=== PATIENT | female | born 1930 | race Asian ===

== ENCOUNTER → 2017-02-26 | Outpatient (CLI) | payer MEDICARE, OTHER ==
[~2017-02-26] MED LIST: AMLO-96 PO; AMLO2.5T74 PO; BLOO-1318 MC; CALC-515 PO; CHOL200038 PO; CYCL1DRO6 OP; ESOM40CA42 PO; EST3 PO; GLUCOSAMINE 1,1 EACH PO; HCTZ25 PO; HYDR-2966 PO; LANC-1149 MC; LOS50 PO; LOSA50TA72 PO; LOVA20TA99 PO; LUTE20CA11 PO; METF-410 PO; METF-415 PO; METO-253 PO; MULT-885 PO; OMEG100027 PO; OMEP-218 PO; PIO15 PO; PIOG15TA14 PO; PNEU0.5D3 IM; TRIA15CR40 TP; VITAMINS
[2017-02-26 10:36] LABS: LDL CHOLESTEROL 86 mg/dl
== END ==
LOC: LAB 09:57
PROVIDERS: ATTEND Internal Medicine
DX: E11.9 Type 2 diabetes mellitus without complications (principal); E78.2 Mixed hyperlipidemia
CPT/HCPCS: 36415; 82040; 82247; 82310; 82374; 82435; 82465; 82565; 82947; 83036; 83718; 84075; 84132; 84155; 84295; 84450; 84460; 84478; 84520

== ENCOUNTER → 2017-05-28 | Outpatient (CLI) | payer MEDICARE, OTHER | LOC: ZZSPRING 05-27 12:50 | PROVIDERS: ATTEND Internal Medicine | DX: E11.9 Type 2 diabetes mellitus without complications (principal); I10 Essential (primary) hypertension | CPT/HCPCS: 36415; 82040; 82247; 82310; 82374; 82435; 82565; 82947; 83036; 84075; 84132; 84155; 84295; 84450; 84460; 84520 ==

== ENCOUNTER → 2017-10-15 | Outpatient (CLI) | payer MEDICARE, OTHER ==
[~2017-10-15] MED LIST changes: +AMLO-111 PO; -AMLO-96 PO; -AMLO2.5T74 PO; +AMLO2.5T76 PO; -LOSA50TA72 PO; +LOSA50TA74 PO; -METF-410 PO; +METF-450 PO; +METF-451 PO
== END ==
LOC: ZZSPRING 01:11
PROVIDERS: ATTEND Internal Medicine
DX: E78.2 Mixed hyperlipidemia (principal); E11.9 Type 2 diabetes mellitus without complications; I10 Essential (primary) hypertension
CPT/HCPCS: 36415; 82040; 82247; 82310; 82374; 82435; 82565; 82947; 83036; 84075; 84132; 84155; 84295; 84450; 84460; 84520

== ENCOUNTER → 2018-05-12 | Outpatient (CLI) | payer MEDICARE, OTHER ==
[~2018-05-12] MED LIST changes: +ACET-1966 PO; -AMLO-111 PO; +AMLO-125 PO; -AMLO2.5T76 PO; +AMLO2.5T78 PO; +CALC1TAB24 PO; +DEXT15DR19 OP; +GUAI237L36 PO; +LOPE2CAP15 PO; -LOSA50TA74 PO; +LOSA50TA80 PO; +MAG-65 PO; +MOM PO
--- NOTE | 2018-05-12 10:25 | EKG ---
FACILITY: [facility] PATIENT NAME: MADDY DIAMOND : [id number] MR: [id number]: [id number] EXAM DATE: ORDERING PHYSICIAN: RAMESH SUNSHINE TECHNOLOGIST: JUAN DAVID Millan Reason : IRREG HR Blood Pressure : / mmHG Vent. Rate : 099 BPM Atrial Rate : 110 BPM P-R Int : 000 ms QRS Dur : 066 ms QT Int : 290 ms P-R-T Axes : 000 082 054 degrees QTc Int : 372 ms Atrial fibrillation Septal infarct , age undetermined Abnormal ECG No previous ECGs available Referred By: JONG Confirmed By:
== END ==
LOC: RESP 10:02
PROVIDERS: ATTEND Family Medicine
DX: R94.31 Abnormal electrocardiogram [ECG] [EKG] (principal)
CPT/HCPCS: 93005

== ENCOUNTER → 2018-06-10 | Outpatient (CLI) | payer MEDICARE, OTHER ==
[~2018-06-10] MED LIST changes: +APIX2.5T PO
== END ==
LOC: ZZSPRING 02:13
PROVIDERS: ATTEND Family Medicine
DX: E11.9 Type 2 diabetes mellitus without complications (principal)
CPT/HCPCS: 36415; 82040; 82247; 82310; 82374; 82435; 82565; 82947; 83036; 84075; 84132; 84155; 84295; 84450; 84460; 84520; 85027

== ENCOUNTER → 2018-09-09 | Outpatient (CLI) | payer MEDICARE, OTHER | LOC: ZZSPRING 02:03 | PROVIDERS: ATTEND Family Medicine | DX: I48.91 Unspecified atrial fibrillation (principal); E11.9 Type 2 diabetes mellitus without complications | CPT/HCPCS: 36415; 82310; 82374; 82435; 82565; 82947; 83036; 84132; 84295; 84520; 85027 ==